=== PATIENT | female | born 1945 | race Caucasian/White ===

== ENCOUNTER 2024-04-17 14:54 | Emergency (ER) | payer MEDICARE, OTHER ==
[2024-04-17 15:16] VITALS: RESP 18; TEMP 98.1
--- NOTE | 2024-04-17 15:57 | ED ---
General Adult HPI - General Chief complaint: Fall Stated complaint: Fall-Neck Injury Time Seen by Provider: 04/17/24 15:19 Source: patient Mode of arrival: ambulatory Limitations: no limitations - History of Present Illness Initial comments: Patient is a 79-year-old female past medical history osteopenia, pacemaker not on blood thinners presenting today for upper back pain after a fall. Patient [place] walking on the block when she tripped and fell backwards landing on her bottom. She states that she later noticed upper thoracic back pain, child ibuprofen without improvement in pain. This morning short for walk without difficulty however upon returning home she noticed more discomfort in the upper thoracic region. She denies any numbness, weakness. Denies pain in her neck, did not hit her head or neck. Denies any shortness of breath or chest pain. - Related Data Previous Rx's Medication Instructions Recorded Lidocaine 4% Patch 1 patch TOPICAL DAILY #5 patch 04/17/24 tiZANidine [Zanaflex] 2 mg PO Q8HR PRN 3 Days #10 tablet 04/17/24 Allergies Allergy/AdvReac Type Severity Reaction Status Date / Time No Known Allergies Allergy Verified 04/17/24 15:16 Review of Systems ROS Statement: Those systems with pertinent positive or pertinent negative responses have been documented in the HPI. ROS Other: All systems not noted in ROS Statement are negative. Past Medical History Past Medical History: No Reported History History of Any Multi-Drug Resistant Organisms: None Reported Past Surgical History: Pacemaker Past Psychological History: No Psychological Hx Reported Smoking Status: Never smoker Past Alcohol Use History: Occasional Past Drug Use History: None Reported General Exam - General Exam Comments Initial Comments: PE: CONSTITUTIONAL: no apparent distress, well appearing SKIN: warm, dry, no jaundice, hives or petechiae EYES: pupils are equally round, extraocular movements intact without nystagmus, clear conjunctiva, non-icteric sclera HENT: normocephalic, atraumatic, moist mucus membranes, oropharynx clear without exudates NECK: Nontender and supple with no nuchal rigidity, no lymphadenopathy, full range of motion PULMONARY: clear to auscultation without wheezes, rhonchi, or rales, normal excursion, no accessory muscle use and no stridor CARDIOVASCULAR: regular rate, rhythm, normal S1 and S2. No appreciated murmurs. Strong radial pulses with intact distal perfusion GASTROINTESTINAL: soft, non-tender, non-distended, no palpable masses, no rebound or guarding GENITOURINARY: LYMPHATICS: no edema in lower extremities, no lymphadenopathy MUSCULOSKELETAL: Extremities are nontender to palpation and have no gross deformity, no edema, redness, or swelling NEUROLOGIC: _a/o x 3, GCS 15, normal mentation and speech. Moves all extremities x 4 without motor or sensory deficit PSYCHIATRIC: _normal mood and affect, thought process is clear and linear Equal strength in all 4 extremities, sensation intact at level T3 T2 dermatome distribution, tenderness palpation near T3 T2, no step-offs or crepitus, head is atraumatic, no other midline spinal tenderness, Limitations: no limitations Course Vital Signs 04/17/24 15:14 Temperature 98.1 F Pulse Rate 65 Respiratory 18 Rate Blood Pressure 137/62 O2 Sat by Pulse 99 Oximetry - Reevaluation(s) Reevaluation #1: 04/17/24 16:45 X-ray thoracic spine reviewed. Read as radiology by radiologist as no acute traumatic process. I agree with radiology interpretation, I see no signs of fracture, malalignment or other traumatic injury. Medical Decision Making - Medical Decision Making Was pt. sent in by a medical professional or institution (, PA, REDIPPER, urgent care, hospital, or detention...) When possible be specific @ -[No] Did you speak to anyone other than the patient for history (EMS, parent, family, police, friend...)? What history was obtained from this source @ -[No] Did you review nursing and triage notes (agree or disagree)? Why? @ -[I reviewed and agree with nursing and triage notes] Were old charts reviewed (outside hosp., previous admission, EMS record, old EKG, old radiological studies, urgent care reports/EKG's, detention records)? Report findings @ -Old EKG reviewed Differential Diagnosis (chest pain, altered mental status, abdominal pain women, abdominal pain men, vaginal bleeding, weakness, fever, dyspnea, syncope, headache, dizziness, GI bleed, back pain, seizure, CVA, palpatations, mental health, musculoskeletal)? @ -Differential Chest Pain: Stable Angina, Unstable Angina, STEMI, NSTEMI Aortic Dissection, pericarditis, pleurisy, chostochondirits, Pneumothorax, Musculoskeletal, Esophageal Spasm GERD, Cholecystitis, Pancreatitis, Zoster, this is not meant to be an all- inclusive list. EKG interpreted by me (3pts min.). @ -[As above] X-rays interpreted by me (1pt min.). @ -[None done] CT interpreted by me (1pt min.). @ -[None done] CT brain reviewed, I see no evidence of hemorrhage, mass U/S interpreted by me (1pt. min.). @ -[None done] What testing was considered but not performed or refused? (CT, X-rays, U/S, labs)? Why? @ -[None] What meds were considered but not given or refused? Why? @ -[None] Did you discuss the management of the patient with other professionals (professionals i.e. , PA, REDIPPER, lab, RT, psych nurse, drug abuse social worker, research and development manager, teacher, dispatch officer, case management manager)? Give summary @ -[No] Was smoking cessation discussed for >3mins.? @ -[No] Was critical care preformed (if so, how long)? @ -[No] Were there social determinants of health that impacted care today? How? (Homelessness, low income, unemployed, alcoholism, drug addiction, transportation, low edu. Level, literacy, decrease access to med. care, intermediate, rehab)? @ -[No] Was there de-escalation of care discussed even if they declined (Discuss DNR or withdrawal of care, Hospice)? DNR status @ -[No] What co-morbidities impacted this encounter? (DM, HTN, Smoking, COPD, CAD, Cancer, CVA, ARF, Chemo, Hep., AIDS, mental health diagnosis, sleep apnea, morbid obesity)? @ -[None] Was patient admitted / discharged? Hospital course, mention meds given and route, prescriptions, significant lab abnormalities, going to OR and other pertinent info. @ -[hospital course] Undiagnosed new problem with uncertain prognosis? @ -[No] Drug Therapy requiring intensive monitoring for toxicity (Heparin, Nitro, Insulin, Cardizem)? @ -[No] Were any procedures done? @ -[No] Diagnosis/symptom? @ -[default] Acute, or Chronic, or Acute on Chronic? @ -[default] Uncomplicated (without systemic symptoms) or Complicated (systemic symptoms)? @ -[default] Side effects of treatment? @ -[No] Exacerbation, Progression, or Severe Exacerbation? @ -[No] Poses a threat to life or bodily function? How? (Chest pain, [place], [place], pneumonia, PE, COPD, DKA, ARF, appy, cholecystitis, CVA, Diverticulitis, Homicidal, Suicidal, threat to staff... and all critical care pts) @ -[No] Disposition Clinical Impression: Back pain, Fall Disposition: HOME SELF-CARE Condition: Good Instructions (If sedation given, give patient instructions): Low Back Strain (ED) Additional Instructions: Every disease is a spectrum and a small chance still exists that a serious condition could develop, for this reason, please monitor yourself closely for new, changing or worsening symptoms, symptoms that persist beyond 1 week or do not begin to improve in the next 48 hours, any new numbness or weakness, pain th at you cannot control with home medications, difficulty in breathing, fever, inability to tolerate/keep down fluids or your medications, inability to follow up with outpatient providers as instructed and should you experience these symptoms or should you have any further concerns for your wellbeing please return to the ED or call 911 immediately. Your pain can be treated with ibuprofen and acetaminophen. You can take up to 400-600 mg of ibuprofen (Advil, Motrin) 3 times daily (every 8 hours) but can also use lower doses if this relieves your pain. Some people prefer naproxen (Aleve, Naprosyn) which can be taken in doses of 500 mg up to twice a day. Do not take both of these medicines together, and do not combine either with ketorolac (Toradol), meloxicam (Mobic), or indomethacin (Tivorbex). Some people can develop stomach discomfort with higher doses of either ibuprofen or naproxen, if this develops decrease your dose or stop taking it. If you need to take this dose daily for more than a week, please schedule an appointment for re-evaluation with your PCP. Please take these medications with food. You can take up to 1000 mg of acetaminophen (Tylenol) every 6 hours. Be careful as this is included in some medicines like Nyquil, Vilas, Percocet, Vicodin, STANBACK, Goody's Powders, and Excedrin. You can also use lidocaine patches for topical pain. You can purchase 4% patches over the counter at most drug stores. These can be helpful for pain from your muscles or bones. You are being discharged with a muscle relaxant, Zanaflex, this may make you drowsy, please do not take this operating heavy machinery or driving PLEASE call your primary care physician as soon as possible to arrange / discuss plan for followup appointment. Appointment in the next 1-3 days is strongly encouraged if possible. PLEASE let us know here before you leave if there is anything further we can do to be of any assistance. Take care and feel Better! Prescriptions: Lidocaine 4% Patch 1 patch TOPICAL DAILY #5 patch tiZANidine [Zanaflex] 2 mg PO Q8HR PRN 3 Days #10 tablet PRN Reason: Pain Control Is patient prescribed a controlled substance at d/c from ED?: No Referrals: Nonstaff,Physician [Primary Care Provider] - 1-2 days Time of Disposition: 17:17
[2024-04-17] MEDS: tiZANidine 4 MG TAB PO STA (15:58)
[2024-04-17] MEDS: ACETAMINOPHEN TAB 500 MG TAB PO STA (15:59)
[2024-04-17] MEDS: LIDOCAINE 4% PATCH TOPICAL ONE (16:00)
--- NOTE | 2024-04-17 16:29 | XR ---
Thoracic spine HISTORY: Fall and pain. COMPARISON: None TECHNIQUE: 3 views of the thoracic spine were obtained. FINDINGS: The thoracic vertebral segments are normal in height and alignment there is no fracture or subluxatio n. Paraspinal soft tissues unremarkable. There is mild S-shaped scoliosis of the thoracolumbar spine. IMPRESSION: 1. No evidence of acute trauma. 2. Mild S-shaped scoliosis of the thoracic spine.
[2024-04-17 17:29] VITALS: BP 130/81; PULSE 62
== END 2024-04-17 17:29 | disposition home or self-care (01) ==
LOC: EC 14:54
DX: M54.6 Pain in thoracic spine (principal); W01.0XXA Fall on same level from slipping, tripping and stumbling without subsequent striking against object, initial encounter; Y93.01 Activity, walking, marching and hiking
CPT/HCPCS: 72072; 99284